=== PATIENT | female | born 1955 | race Hispanic/Latino ===

== ENCOUNTER 2017-02-21 11:49 | Outpatient (CLI) | payer OTHER ==
--- NOTE | 2017-02-21 12:48 | RAD ---
THREE VIEWS OF THE RIGHT RIBS: History: Fall with contusion of right ribs, right rib pain. FINDINGS: Three views of the right ribs shows no evidence of displaced right rib fracture. No underlying pleur al thickening or pneumothorax are seen. IMPRESSION: Unremarkable exam. POS: [facility]
== END 2017-02-21 11:50 | disposition home or self-care (01) ==
LOC: MADRAD 11:49
PROVIDERS: ATTEND Family Medicine
DX: S20.212A Contusion of left front wall of thorax, initial encounter (principal); W19.XXXA Unspecified fall, initial encounter

== ENCOUNTER 2017-12-31 11:03 | Outpatient (CLI) | payer OTHER ==
--- NOTE | 2017-12-31 12:46 | RAD ---
2 VIEWS ABDOMEN: Date: 12/31/17 COMPARISON: None. HISTORY: Constipation and abdominal pain. FINDINGS: Supine and upright views of the abdomen show nonspecific, nonobstructive bowel gas pattern. Air is se en to the level of the rectum. Cholecystectomy clips are seen. IMPRESSION: Nonobstructive bowel gas pattern. POS: [facility]
== END 2017-12-31 11:04 | disposition home or self-care (01) ==
LOC: MADRAD 11:03
PROVIDERS: ATTEND Family Medicine
DX: K59.00 Constipation, unspecified (principal); R10.9 Unspecified abdominal pain
CPT/HCPCS: 74019